=== PATIENT | female | born 1990 | race Caucasian/White ===

== ENCOUNTER 2021-02-17 18:56 | Emergency (ER) | payer OTHER, BC, SELFPAY ==
[2021-02-17 18:58] VITALS: BP 135/87; PULSE 90; RESP 14; TEMP 36.4; O2SAT 99
--- NOTE | 2021-02-17 19:32 | ED.WOUNDLAC ---
HPI - Wound/Laceration General Chief Complaint: Wound/Laceration Stated Complaint: DOG BITE Time Seen by Provider: 02/17/21 19:03 History of Present Illness HPI narrative: Patient is a 30-year-old female who presents ER with dog bite wounds to her hands. Occurred just prior to arrival. Was attacked by neighbors dog who reported fully vaccinated. Patient's last tetanus shot was 1 year ago. She was walking her dog and now the dog broke off the leash. Patient has some superficial bite/puncture wounds to the hands bilaterally. Right hand mainly involves digits 2 and 4 as well as couple jin near the wrist. Left hand involves a puncture. Reports throbbing numbness to the left third digit distal to the injury. Third digit has a small bite at the PIP of the third digit. Related Data Home Medications Medication Instructions Recorded Confirmed bupropion HCl mg PO 02/17/21 norethindrone (contraceptive) mg 02/17/21 sertraline mg 02/17/21 Allergies Allergy/AdvReac Type Severity Reaction Status Date / Time No Known Allergies Allergy Verified 02/17/21 19:14 Review of Systems Constitutional: Constitutional: Denies chills and Denies fever(s) Musculoskeletal: Musculoskeletal: Denies arthralgias, Denies joint swelling and Denies muscle cramps Integumentary/Breasts: Skin/Breast: Denies rash, Denies skin pain and Reports wounds Neurologic: Denies focal weakness, Denies numbness (Tingling that is not reproducible) and Denies weakness PMFSH Past Medical History Medical History (Updated 02/17/21 @ 19:40 by Fei Zuniga MD) Healthy female adult Surgical History Surgical History (Updated 02/17/21 @ 19:35 by Fei Zuniga MD) No history of previous surgery Exam Narrative: GENERAL: Well-appearing, well-nourished, and in no acute distress. HEAD: Normocephalic, atraumatic. HEART: Regular rate and rhythm. Normal peripheral pulses. EXTREMITIES: Focused exam of bilateral hands reveals normal range of motion and strength of the digits. The right hand has a puncture wound digit #4 and a superficial laceration at the PIP of digit #2. 2 superficial punctures near the wrist. Digit #3 on the left hand reveals a puncture wound near the PIP. Sensation intact in hands bilaterally. Wounds cleansed and appear to be very superficial and not deep. SKIN: Warm, dry, no rash. NEURO: No focal deficits. Alert and oriented x3. PSYCH: Normal mood and affect. Course Course Emergency Course: Discussed tx plan. Patient verbalized understanding. Wound superficial, no XR. D/c. Vital Signs Vital signs: Vital Signs Temperature 97.6 F 02/17/21 18:58 Pulse Rate 90 02/17/21 18:58 Respiratory Rate 14 02/17/21 18:58 Blood Pressure 135/87 02/17/21 18:58 Pulse Oximetry 99 02/17/21 18:58 Temperature 97.6 F 02/17/21 18:58 Pulse Rate 90 02/17/21 18:58 Respiratory Rate 14 02/17/21 18:58 Blood Pressure 135/87 02/17/21 18:58 Pulse Oximetry 99 02/17/21 18:58 Discharge Plan Discharge Clinical Impression: Dog bite of hand Patient Disposition: Home, Self-Care Condition: Stable Instructions: Antibiotic Form, Animal Bite (ED) Additional Instructions: Return to the ER if your fingers are red/hot/swollen, you have pus draining from wounds, you have additional concerns. Prescriptions: New amoxicillin-pot clavulanate [Augmentin] 875-125 mg tablet 1 tablet PO Q12H Qty: 10 RF: 0 No Action sertraline 100 mg tablet RF: 0 norethindrone (contraceptive) 0.35 mg tablet RF: 0 bupropion HCl 300 mg tablet extended release 24 hr PO RF: 0 Follow-up/Referrals: PHYSICIAN,STOCK SORTER [Non-Staff] - Zev Mcgraw MD [Physician] - 1 Week
[2021-02-17 20:07] VITALS: BP 138/85; PULSE 80; RESP 16; O2SAT 100
== END 2021-02-17 19:58 | disposition home or self-care (01) ==
PROVIDERS: Emergency Provider Emergency Medicine
DX: S61.250A Open bite of right index finger without damage to nail, initial encounter (principal); S61.254A Open bite of right ring finger without damage to nail, initial encounter; S61.551A Open bite of right wrist, initial encounter; S61.253A Open bite of left middle finger without damage to nail, initial encounter; W54.0XXA Bitten by dog, initial encounter
CPT/HCPCS: 99283

== ENCOUNTER 2021-10-03 10:38 | Emergency (ER) | payer BC, SELFPAY ==
[2021-10-03 10:51] VITALS: BP 111/74; PULSE 73; RESP 18; TEMP 37; O2SAT 100
--- NOTE | 2021-10-03 10:57 | ED.URI ---
HPI - URI/Sore Throat General Chief Complaint: Upper Respiratory Infection Stated Complaint: runny nose,sorethroat,hoarse Time Seen by Provider: 10/03/21 10:57 Source: patient Mode of arrival: ambulatory Limitations: no limitations History of Present Illness HPI Narrative: 31-year-old female presents with complaint of cough, nasal congestion, sore throat, headaches, fatigue, postnasal drainage for 5 to 6 days. Reports sore throat worse and has hoarse voice. Denies chest pain or shortness of breath. Taking [id number] DayQuil NyQuil cold and flu with no relief. Has taken 2 home Covid test that were both negative. All systems reviewed and negative except as noted above. Related Data Home Medications Medication Instructions Recorded Confirmed bupropion HCl 300 mg PO DAILY 02/17/21 10/03/21 sertraline 100 mg PO DAILY 02/17/21 10/03/21 norethindrone-e.estradiol-iron 1 tablet PO DAILY 10/03/21 10/03/21 [Aurovela 24 Fe] Allergies Allergy/AdvReac Type Severity Reaction Status Date / Time No Known Allergies Allergy Verified 10/03/21 10:56 Review of Systems Review of Systems: CONSTITUTIONAL: Denies fever, chills, or sweats. EYES: Denies visual changes, redness, or discharge. ENT: Reports rhinorrhea, congestion, sore throat. Denies otalgia. CARDIOVASCULAR: Denies chest pain, palpitations, or edema. RESPIRATORY: Reports cough. Denies dyspnea. GASTROINTESTINAL: Denies abdominal pain, nausea, vomiting, or diarrhea. GENITOURINARY: Denies dysuria or hematuria. SKIN: Denies rash or itching. MUSCULOSKELETAL: Denies back pain, joint pain, or myalgia. NEUROLOGIC: Denies headache, numbness, or weakness. PSYCHIATRIC: Denies anxiety or depression. All other systems reviewed are negative, except as documented in HPI. [facility] Past Medical History Medical History (Updated 10/03/21 @ 11:04 by Anna Mobley NP) Healthy female adult Surgical History Surgical History (Updated 02/17/21 @ 19:35 by Fei Zuniga MD) No history of previous surgery Comments At time of signature, agree with nursing past medical, surgical, social and family history. There is no relevant family history pertinent to the presenting complaint. Exam Narrative: GENERAL: This is a well-nourished, well-developed patient, in no apparent distress. HEAD: normocephalic, atraumatic. EYES: PERRL. Sclera clear/white. Vision is grossly intact. EARS: External ears normal, auditory canals clear and without drainage, TMs normal without perforation. Hearing grossly intact. NOSE: External nose normal with clear nasal drainage, erythema to nares. THROAT: Mucous membranes moist, erythema to posterior pharynx with clear postnasal drainage. No exudates or no tonsillar enlargement. NECK: Neck supple, non-tender without lymphadenopathy, masses or thyromegaly. CARDIOVASCULAR: Regular rate and rhythm without murmurs, gallops, or rubs. RESPIRATORY: Clear to auscultation. Breath sounds equal bilaterally. No wheezes, rales, or rhonchi. SKIN: warm, Dry, intact with no suspicious lesions or rash, good texture and turgor. NEURO: awake, alert, and oriented to person, place and time. There were no obvious focal neurologic abnormalities. EXTREMITIES: No joint tenderness, effusion, or edema noted. No calf tenderness. Negative Homans sign bilaterally. Course Course Level of Care: Express Care Visit Vital Signs Vital signs: Vital Signs Temperature 37.0 C 10/03/21 10:51 Pulse Rate 73 10/03/21 10:51 Respiratory Rate 18 10/03/21 10:51 Blood Pressure 111/74 10/03/21 10:51 Pulse Oximetry 100 10/03/21 10:51 Temperature 37.0 C 10/03/21 10:51 Pulse Rate 73 10/03/21 10:51 Respiratory Rate 18 10/03/21 10:51 Blood Pressure 111/74 10/03/21 10:51 Pulse Oximetry 100 10/03/21 10:51 Reviewed MDM - URI/Sore Throat MDM Narrative Medical decision making narrative: Patient is aware of diagnosis, understands and agrees to treatment plan. An
== END 2021-10-03 11:08 | disposition home or self-care (01) ==
PROVIDERS: Emergency Provider Nurse Practitioner Family
DX: J06.9 Acute upper respiratory infection, unspecified (principal); F41.9 Anxiety disorder, unspecified; F32.A Depression, unspecified
CPT/HCPCS: 99213; G0463

== ENCOUNTER 2022-12-08 10:18 | Emergency (ER) | payer OTHER, SELFPAY ==
[2022-12-08 10:44] VITALS: BP 122/75; PULSE 64; RESP 18; TEMP 36.5; O2SAT 100
--- NOTE | 2022-12-08 11:04 | ED.EYEPROB ---
HPI - Eye Problem General Chief complaint: Eye Problems Stated complaint: bilateral eye irritation Time Seen by Provider: 12/08/22 11:04 Source: patient Mode of arrival: ambulatory Limitations: no limitations History of Present Illness HPI Narrative: 32-year-old female presents with complaint of redness, drainage irritation to both eyes for the past 2-3 days. Started to 1 eye and then spread to the other eye. Patient wears contacts but after symptoms started to 1st eyes she began wearing her glasses in through the contacts away. She denies vision changes. No pain. States drainage is yellowish green. All systems reviewed and negative except as noted above. Related Data Home Medications Medication Instructions Recorded Confirmed bupropion HCl 300 mg 24 hr tablet, mg PO 12/08/22 extended release levothyroxine 50 mcg tablet mcg 12/08/22 12/08/22 norethindrone 1 mg-ethinyl tablet 12/08/22 estradiol 20 mcg (24)-iron 75 mg (4) tablet () sertraline 100 mg tablet mg 12/08/22 Allergies Allergy/AdvReac Type Severity Reaction Status Date / Time No Known Allergies Allergy Verified 10/03/21 10:56 Review of Systems Review of Systems: CONSTITUTIONAL: Denies fever, chills, or sweats. EYES: Denies visual changes . Reports redness, irritation and discharge. ENT: Denies rhinorrhea, congestion, sore throat, or otalgia. CARDIOVASCULAR: Denies chest pain, palpitations, or edema. RESPIRATORY: Denies cough or dyspnea. GASTROINTESTINAL: Denies abdominal pain, nausea, vomiting, or diarrhea. GENITOURINARY: Denies dysuria or hematuria. SKIN: Denies rash or itching. MUSCULOSKELETAL: Denies back pain, joint pain, or myalgia. NEUROLOGIC: Denies headache, numbness, or weakness. PSYCHIATRIC: Denies anxiety or depression. All other systems reviewed are negative, except as documented in HPI. [facility] Past Medical History Medical History (Updated 12/08/22 @ 11:10 by Anna Mobley NP) Healthy female adult Surgical History Surgical History (Updated 02/17/21 @ 19:35 by Fei Zuniga MD) No history of previous surgery Comments At time of signature, agree with nursing past medical, surgical, social and family history. There is no relevant family history pertinent to the presenting complaint. Exam Narrative: GENERAL: This is a well-nourished, well-developed patient, in no apparent distress. HEAD: normocephalic, atraumatic. EYES: PERRL. Sclera and conjunctiva erythematous. Yellowish ropey drainage noted. Vision is grossly intact. EARS: External ears normal NOSE: External nose normal NECK: Neck supple, non-tender without lymphadenopathy, masses or thyromegaly. CARDIOVASCULAR: Regular rate and rhythm without murmurs, gallops, or rubs. RESPIRATORY: Clear to auscultation. Breath sounds equal bilaterally. No wheezes, rales, or rhonchi. SKIN: warm, Dry, intact with no suspicious lesions or rash, good texture and turgor. NEURO: awake, alert, and oriented to person, place and time. There were no obvious focal neurologic abnormalities. EXTREMITIES: No joint tenderness, effusion, or edema noted. Course Course Level of Care: Express Care Visit Vital Signs Vital signs: Vital Signs Temperature 36.5 C 12/08/22 10:44 Pulse Rate 64 12/08/22 10:44 Respiratory Rate 18 12/08/22 10:44 Blood Pressure 122/75 12/08/22 10:44 Pulse Oximetry 100 12/08/22 10:44 Oxygen Delivery Room Air 12/08/22 10:44 Temperature 36.5 C 12/08/22 10:44 Pulse Rate 64 12/08/22 10:44 Respiratory Rate 18 12/08/22 10:44 Blood Pressure 122/75 12/08/22 10:44 Pulse Oximetry 100 12/08/22 10:44 Oxygen Delivery Room Air 12/08/22 10:44 Reviewed MDM - Eye Problem MDM Narrative Medical decision making narrative: Patient is aware of diagnosis, understands and agrees to treatment plan. Anticipatory guidance given. Patient agrees to follow-up as directed and is aware of reas
== END 2022-12-08 11:17 | disposition home or self-care (01) ==
PROVIDERS: Emergency Provider Nurse Practitioner Family; PCP Internal Medicine
DX: H10.33 Unspecified acute conjunctivitis, bilateral (principal)
CPT/HCPCS: 99213; G0463

== ENCOUNTER 2023-10-06 09:05 | Emergency (ER) | payer OTHER, SELFPAY ==
[2023-10-06 09:43] VITALS: BP 118/70; PULSE 107; RESP 14; TEMP 36.8; O2SAT 100
--- NOTE | 2023-10-06 10:05 | ED.URI ---
HPI - URI/Sore Throat General Chief Complaint: Upper Respiratory Infection Stated Complaint: nausea,cough,congestion Time Seen by Provider: 10/06/23 10:05 Source: patient and RN notes reviewed Mode of arrival: ambulatory Limitations: no limitations History of Present Illness HPI Narrative: 33-year-old female who is 4 weeks presents with concern for 2 day history of nausea, diarrhea, cough, sinus congestion that started on Friday. She reports she has not taken any medication because she is not sure what to take. She reports chills, sweats, body aches. Denies fever MD elicited complaint: cough and nasal congestion Related Data Home Medications Medication Instructions Recorded Confirmed bupropion HCl 300 mg 24 hr tablet, mg PO 12/08/22 extended release sertraline 100 mg tablet mg 12/08/22 Compound [id number] 10/06/23 Allergies Allergy/AdvReac Type Severity Reaction Status Date / Time No Known Allergies Allergy Verified 10/06/23 09:55 Review of Systems Review of Systems: CONSTITUTIONAL: Report malaise, chills, sweats. Denies fever. EYES: Denies visual changes, redness, or discharge. ENT: Reports rhinorrhea, congestion. Denies sinus pain, otalgia and sore throat. CARDIOVASCULAR: Denies chest pain, palpitations, or edema. RESPIRATORY: Reports cough. Denies dyspnea. GASTROINTESTINAL: Denies abdominal pain. Reports nausea, vomiting, diarrhea SKIN: Denies rash or itching. MUSCULOSKELETAL: Reports myalgia. NEUROLOGIC: Denies headache. All systems reviewed & are unremarkable except as noted in HPI and below PMFSH Past Medical History Medical History (Updated 10/06/23 @ 10:31 by Colleen Childers NP) Healthy female adult Surgical History Surgical History (Updated 02/17/21 @ 19:35 by Fei Zuniga MD) No history of previous surgery Comments At time of signature, agree with nursing past medical, surgical, social and family history. There is no relevant family history pertinent to the presenting complaint Exam Narrative: GENERAL: Nontoxic-appearing, well-nourished, and in no acute distress. HEAD: Normocephalic EYES: PERRLA, conjunctivae clear ENT: Nares clear, turbinates edematous and erythematous, clear discharge. Mucous membranes moist. TM pearly dodge with sharp light reflex bilaterally; no tragal tenderness. Oropharynx not erythematous without lesions. Tonsils not enlarged and without exudate, no drooling, no hoarseness, no trismus, uvula midline. NECK: Supple. No lymphadenopathy CHEST: Clear to auscultation, breath sounds equal. No wheezing, rhonchi, rales, or stridor. No respiratory distress, speaks in full sentences. HEART: Regular rate and rhythm. No murmur heard. SKIN: Warm, dry, no rash. NEURO: Alert and oriented x3. PSYCH: Normal mood and affect Course Course Emergency Course: Patient is aware of diagnosis, understands and agrees to treatment plan. Anticipatory guidance given. Patient agrees to follow-up as directed and is aware of reasons to seek care at the emergency department. Portions of this record may have been created with voice recognition software Level of Care: Express Care Visit Vital Signs Vital signs: Vital Signs Temperature 98.3 F 10/06/23 09:43 Pulse Rate 107 H 10/06/23 09:43 Respiratory Rate 14 10/06/23 09:43 Blood Pressure 118/70 10/06/23 09:43 Pulse Oximetry 100 10/06/23 09:43 Oxygen Delivery Room Air 10/06/23 09:43 Temperature 98.3 F 10/06/23 09:43 Pulse Rate 107 H 10/06/23 09:43 Respiratory Rate 14 10/06/23 09:43 Blood Pressure 118/70 10/06/23 09:43 Pulse Oximetry 100 10/06/23 09:43 Oxygen Delivery Room Air 10/06/23 09:43 Reviewed. MDM - URI/Sore Throat MDM Narrative Medical decision making narrative: Differential diagnosis considered: Goyal virus, strep pharyngitis, allergic rhinitis, upper respiratory tract infection, sinusitis, rhinosinusitis, nasopharyngitis. viral pharyngitis, otitis me
== END 2023-10-06 10:36 | disposition home or self-care (01) ==
PROVIDERS: Emergency Provider Nurse Practitioner; PCP Internal Medicine
DX: J10.1 Influenza due to other identified influenza virus with other respiratory manifestations (principal)
CPT/HCPCS: 87804; 99213; G0463

== ENCOUNTER 2025-05-15 09:34 | Emergency (ER) | payer OTHER, SELFPAY ==
--- OUTSIDE RECORDS SUMMARY | 2025-05-15 09:40 | XMS_ITS | Data Portability ---
Author Organization [facility] [place] James Address [address] [place] [address] Care Team Providers Care Technical Training Manager Name Role Phone THERESE BASHIR Director Safety Assessment Encounter Date Assessment Date Assessment LastModified by Organization Details LastModified Time 04/30/2024 04/30/2024 36 weeks doing well baby with umbilicalvarix being followed by [facility] with NSTs and growth scans still hoping for local 39 week delivery. Not available 04/30/2024 11:12:48 05/07/2024 05/07/2024 37 weeks, second baby, doing well Not available 05/07/2024 14:35:03 05/14/2024 05/14/2024 second baby, 39 week induction scheduled next week Not available 05/14/2024 14:37:52 05/31/2024 05/31/2024 PPD check after second vaginal delivery by Dr Matias rehabilitation consultant will start minipill as plans to pump for awhile Not available 05/31/2024 14:29:23 06/28/2024 06/28/2024 normal PP exam after second vaginal delivery minipill for control while Not available 06/28/2024 14:14:00 Plan of Treatment Reminders Order Date Submit Date Provider Last Modified By Organization Details Last Modified Time Details Appointments ANNUAL 2025 10:30A M Therese Bashir MD Not available Not available Not available Lab cytology report, thin prep, smear or scraping, cervical or vaginal 2023 024 [facility], [address], [address], [place], [address], 07/02/2024 16:22:48 urinalysi s, dipstick 2023 024 In-Office Order, Internal Use Only DO Not Attach Compendium DO Not Attach Compendium, Do Not Delete/merge, [id number] 05/14/2024 14:37:52 urinalysi s, dipstick 2023 024 In-Office Order, Internal Use Only DO Not Attach Compendium DO Not Attach Compendium, Do Not Delete/merge, 05/07/2024 14:35:03 urinalysi s, dipstick 2023 024 In-Office Order, Internal Use Only DO Not Attach Compendium DO Not Attach Compendium, Do Not Delete/merge, 04/30/2024 11:12:49 Referral None recorded. Procedures None recorded. Surgeries None recorded. Imaging None recorded. Medication Orders Andria 0.35 mg tablet 2023 [facility][id number], [address], [id number], 06/28/2024 14:14:22 Andria 0.35 mg tablet 2023 [id number], [address], [id number], 05/31/2024 14:29:50 Patient TargetsNo targets recorded. Patient Instructions Encounter Date Encounter Id Patient Instructions Last Modified By Organization Details Last Modified Time 05/31/2024 [id number] depression after childbirth: care instructions er Not available 05/31/2024 14:29:45 stress in parent s of infants: care instructions er Not available 05/31/2024 14:29:45 06/28/2024 [id number] edinburgh depression scale* urn Not available 06/28/2024 14:09:11 Reason for Referral None Reported. Results Created Date Observation Date Name Description Value Unit Range Abnormal Flag Note LastModifiedBy Organization Detail LastModifiedTime 03/30/2003/30/2024 urina lysis , dipst ick Protein Trace Not Available In-Office Order Internal Use Only DO Not Attach Compendium DO Not Attach Compendium, Do Not Delete/merge, [id number] 03/22/2024 16:34:01 03/30/20 24 03/30/2024 urina lysis , dipst ick Glucose Negati ve Not Available In-Office Order Internal Use Only DO Not Attach Compendium DO Not Attach Compendium, Do Not Delete/merge, [id number] 03/22/2024 16:34:01 04/16/20 24 04/16/2024 urina lysis , dipst ick Protein Trace Not Available In-Office Order Internal Use Only DO Not Attach Compendium DO Not Attach Compendium, Do Not Delete/merge, [id number] 04/06/2024 12:10:09 04/16/20 24 04/16/2024 urina lysis , dipst ick Glucose Negati ve Not Available In-Office Order Internal Use Only DO Not Attach Compendium DO Not Attach Compendium, Do Not Delete/merge, [id number] 04/06/2024 12:10:09 04/30/20 24 04/30/2024 urina lysis , dipst ick Protein Negati ve Not Available In-Office Order Internal Use Only DO Not Attach Compendium DO Not Attach Compendium, Do Not Delete/merge, [id number] 04/26/2024 16:20:22 04/30/20 24 04/30/2024 urina lysis , dipst ick Glucose Negati ve Not Available In-Office Order Internal Use Only DO Not Attach Compendium DO Not Attach Compendium, Do Not Delete/merge, [id number] 04/26/2024 16:20:22 05/07/20 24 05/07/2024 urina lysis , dipst ick Protein Negati ve Not Available In-Office Order Internal Use Only DO Not Attach Compendium DO Not Attach Compendium, Do Not Delete/merge, [id number] 05/05/2024 15:25:45 05/07/20 24 05/07/2024 urina lysis , dipst ick Glucose Negati ve Not Available In-Office Order Internal Use Only DO Not Attach Compendium DO Not Attach Compendium, Do Not Delete/merge, [id number] 05/05/2024 15:25:45 05/14/20 24 05/14/2024 urina lysis , dipst ick Protein Negati ve Not Available In-Office Order Internal Use Only DO Not Attach Compendium DO Not Attach Compendium, Do Not Delete/merge, [id number] 05/10/2024 12:54:00 05/14/20 24 05/14/2024 urina lysis , dipst ick Glucose Negati ve Not Available In-Office Order Internal Use Only DO Not Attach Compendium DO Not Attach Compendium, Do Not Delete/merge, [id number] 05/10/2024 12:54:00 06/28/20 24 07/02/2024 IGP, RFX APTIM A HPV ASCU diagnosis: COMMEN T NEGAT EDGARDO FOR INTRA EPITH ELIAL LESIO N OR SHERRON SELBY . POST- PARTU M TOVAR ES ARE PRESE NT. THIS SPECI MEN WAS RESCR EENED PART OF OUR QUALI TY CONTR OL PROGR AM. Not Available [facility] ([facility]) [address], [place], [address], 07/02/2024 16:22:48 06/28/20 24 07/02/2024 IGP, RFX APTIM A HPV ASCU specimen adequacy: COMMEN T Satis facto ry for evalu ation . Endoc ervic al and/o r squam ous metap lasti c cells (endo cervi lesly compo nent) are prese nt. Not Available [facility] ([facility]) [address], [place], [address], 07/02/2024 16:22:48 06/28/20 24 07/02/2024 IGP, RFX APTIM A HPV ASCU clinician provided ICD10: COMMEN T Z39.2 Not Available [facility] ([facility]) [address], [place], [address], 07/02/2024 16:22:48 06/28/20 24 07/02/2024 IGP, RFX APTIM A HPV ASCU performed by: MARTITA Pearl er, Cytot echno logis t (ASCP ) Not Available [facility] ([facility]) [address] [place], [address], 07/02/2024 16:22:48 06/28/20 24 07/02/2024 IGP, RFX APTIM A HPV ASCU QC reviewed by: MARTITA Williamson n, Super visor y Cytot echno logis t (ASCP ) Not Available [facility] ([facility]) [address] [place], [address], 07/02/2024 16:22:48 06/28/20 24 07/02/2024 IGP, RFX APTIM A HPV ASCU . . Not Available [facility] ([facility]) [address] [place], [address], 07/02/2024 16:22:48 06/28/20 24 07/02/2024 IGP, RFX APTIM A HPV ASCU note: MARTITA Johnson The Pap smear is a scree katy test roxann loya to aid in the detec tion of guero ligna nt and malig nant condi tions of the uteri ne cervi x. It is not a diagn ostic proce dure and shoul d not be used as the sole means of detec ting cervi lesly cance r. Both false -posi tive and false -nega tive repor ts do occur . Not Available [facility] ([facility]) [address] [place], [address], 07/02/2024 16:22:48 06/28/20 24 07/02/2024 IGP, RFX APTIM A HPV ASCU test methodology: MARTITA Johnson This liqui d based ThinP rep(R ) pap test was scree vincenzo with the use of an image guide anahi clark Not Available [facility] ([facility]) [address], [place], [address], 07/02/2024 16:22:48 06/28/20 24 07/02/2024 IGP, RFX APTIM A HPV ASCU . COMMEN T The HPV DNA refle x crite ronald were not met with this speci men resul t there fore, no HPV testi ng was perfo rmed. Not Available [facility] ([facility]) [address], [place], [address], 07/02/2024 16:22:48 06/28/20 24 06/28/2024 edinb urgh postn atal depre ssion scale * Score 6 Not Available In-Office Order Internal Use Only DO Not Attach Compendium DO Not Attach Compendium, Do Not Delete/merge, [id number] 06/28/2024 13:55:55 03/30/20 24 03/26/2024 US, obste tric, mater nal evalu ation + anato my No observ ation record ed. [facility] [address] [place] [address], [address], 03/30/2024 10:01:36 04/09/20 24 04/09/2024 US, obste tric No observ ation record ed. [facility] [address], [address], 04/12/2024 11:50:02 04/09/20 24 04/09/2024 US, obste tric, mater nal evalu ation + anato my No observ ation record ed. [facility] [address], [address], 04/12/2024 11:50:02 04/16/20 24 04/16/2024 US, obste tric, mater nal evalu ation + anato my No observ ation record ed. [facility] Not Available 2023 12:58:14 10/18/20 24 04/16/2024 US, obste tric, mater nal evalu ation + anato my No observ ation record ed. [facility] ([facility]) Scheduling [address] [place], [address], 04/19/2024 12:58:24 04/16/20 24 04/16/2024 US, obste tric, mater nal evalu ation + anato my No observ ation record ed. [facility] [address] [place], [address], 04/19/2024 11:37:09 04/23/2004/23/2024 US, obste tric, mater nal evalu ation + anato my No observ ation record ed. [facility] ([facility]) Scheduling [address] [place], [address], 04/23/2024 15:50:02 04/23/20 24 04/23/2024 US, obste tric, mater nal evalu ation + anato my No observ ation record ed. [facility] ([facility]) Scheduling [address] [place], [address], 04/23/2024 15:50:23 04/23/20 24 04/23/2024 US, obste tric, mater nal evalu ation + anato my No observ ation record ed. [facility] [address] [place], [address], 04/23/2024 15:31:19 04/30/20 24 04/30/2024 US, obste tric, follo w-up No observ ation record ed. [facility] ([facility]) Scheduling [address] [place], [address], 05/03/2024 14:29:08 05/03/20 24 04/30/2024 US, obste tric, mater nal evalu ation + anato my No observ ation record ed. [facility] [address], [place], [address], 05/03/2024 14:28:45 05/07/20 24 05/07/2024 US, obste tric, follo w-up No observ ation record ed. [facility] ([facility]) Scheduling [address] [place], [address], 05/07/2024 15:06:47 05/10/20 24 05/07/2024 US, obste tric, follo w-up No observ ation record ed. [facility] ([facility]) Scheduling [address] [place], [address], 05/10/2024 14:24:25 05/14/20 24 05/14/2024 US, obste tric, follo w-up No observ ation record ed. [facility] ([facility]) Scheduling [address] [place], [address], 05/14/2024 15:35:17 05/14/20 24 05/14/2024 US, obste tric, mater nal evalu ation + anato my No observ ation record ed. [facility] [address], [place], [address], 05/14/2024 15:35:18 Result Notes None recorded. Problems Name Problem SNOMED Code Status Onset Date Resolution Date Notes Provider Name and Address Organization Details Recorded Time Genital herpes simplex 42360697 Active Freda Hermosillo MD Attn: Accounting ,[address] [place], [address] , [facility] 2 11:29:58 Genital herpes simplex 91657227 Completed Freda Hermosillo MD Attn: Accounting ,[address] [place], [address] , [facility] 2 11:29:58 Chronic endometri tis 61160789 Completed 201901/31/2020 Gale Truj[place] null, [place] [facility] 0 15:32:07 Anxiety 26562083 Active 2019 Gale [place] 0 15:32:14 Chronic depressio n 341294540 Active 2019 Gale Tru[place] 0 15:32:21 History of endometri osis [id number] 856090 Active 2019 Gale [place] 0 15:32:34 96285569 Completed 201908/31/2020 MERLINE Lambert null, [place] - [facility] 4 14:20:56 [id number] Completed 202305/31/2024 MERLINE Lambert [place] [facility] 4 14:20:56 Problem Notes None recorded. Procedures Surgical History Date Name Laterality Status Provider Name and Address Organization Details Recorded Time 06/28/20 24 Date of Last Pap Smear completed Gabriella Rutherford RN [facility] 07/02/2024 16:31:17 laparoscopic laser destruction of endometriosis completed Gale Espinoza Ronnie [place] - [facility] 01/31/2020 15:38:06 Imaging Results None recorded. Procedure Notes None recorded. Medical Equipment None Reported. Allergies No known drug allergies Medications Name Sig Start Date Stop Date Status Note LastModified by Organization Details LastModified Time ofloxacin 0.3 % eye drops 12/08 completed Not Available Not Available Not Available sertraline 100 mg tablet TAKE 2 TABLETS BY MOUTH DAILY active Not Available Not Available No t Available ondansetron 8 mg disintegrat ing tablet Place 1 tablet every 8 hours by transling ual route as needed for 2 days. 09/28 completed Not Available Not Available Not Available lorazepam 0.5 mg tablet 08/28 completed Not Available Not Available Not Available erythromyci n 5 mg/gram (0.5 %) eye ointment APPLY INTO LEFT EYE FOUR TIMES DAILY FOR 5 DAYS 08/28 completed Not Available Not Available Not Available oseltamivir 75 mg capsule TAKE 1 CAPSULE BY MOUTH TWICE DAILY FOR 5 DAYS active Not Available Not Available No t Available sertraline 25 mg tablet 08/28 completed Not Available Not Available Not Available norethindro ne (contracept edgardo) 0.35 mg tablet TAKE 1 TABLET BY MOUTH EVERY DAY active Not Available Not Available No t Available ondansetron 4 mg disintegrat ing tablet active Not Available Not Available N ot Available amoxicillin 875 mg-potassiu m clavulanate 125 mg tablet TAKE 1 TABLET BY MOUTH EVERY 12 HOURS 08/28 completed Not Available Not Available Not Available bupropion HCl XL 300 mg 24 hr tablet, extended release TAKE 1 TABLET BY MOUTH DAILY IN THE MORNING active Not Available Not Available No t Available duloxetine 30 mg capsule,del ayed release 12/08 completed Not Available Not Available Not Available duloxetine 60 mg capsule,del ayed release 12/08 completed Not Available Not Available Not Available 08/28 completed Not Available Not Available Not Available Estarylla 0.25 mg-0.035 mg tablet Take 1 tablet every day by oral route for 28 days. 2024 active Not Available Not Available Not Avai lable Junel Fe 24 1 mg-20 mcg (24)/75 mg (4) tablet TAKE 1 TABLET BY MOUTH EVERY DAY 12/08 completed Not Available Not Available Not Available Vitals Date Recorded Body height Body mass index (BMI) Body weight Systolic And Diastolic Provider Name and Address Organization Details Last Updated DateTime 04/30/2024 172.72 cm 28.9 kg/m2 00219.981 384 g 118/72 mm[Hg] Bere Chong [facility] 04/30/2024 11:03:46 Date Recorded Body height Body mass index (BMI) Body weight Systolic And Diastolic Provider Name and Address Organization Details Last Updated DateTime 05/07/2024 172.72 cm 28.9 kg/m2 52730.837 69 g 112/77 mm[Hg] Bere Chong [facility] 05/07/2024 14:21:51 Date Recorded Body height Body weight Systolic And Diastolic Provider Name and Address Organization Details Last Updated DateTime 05/14/2024 172.72 cm 03778.5737 54 g 127/80 mm[Hg] Bere Chong [facility] 05/14/2024 14:17:45 Date Recorded Body height Body mass index (BMI) Body weight Systolic And Diastolic Provider Name and Address Organization Details Last Updated DateTime 05/31/2024 172.72 cm 24.8 kg/m2 69919.56 g 116/74 mm[Hg] Bere Chong [facility] 05/31/2024 14:21:13 Date Recorded Body height Body mass index (BMI) Body weight Systolic And Diastolic Provider Name and Address Organization Details Last Updated DateTime 06/28/2024 172.72 cm 24 kg/m2 64887.74 g 121/84 mm[Hg] Bere Chong [facility] 06/28/2024 14:04:55 Social History Question Answer Notes LastModified by Organizat ion Details LastModified Time Tobacco Smoking Status Never Smoker Gale Trujillo [facility] 01/31/2020 15:35:50 What Is Your Level Of Caffeine Consumption? None Information not available 01/31/2020 How Much Tobacco Do You Chew? None [email or web address] Information not available 01/31/2020 In The 14 Days Before Symptom Onset, Have You Had Close Contact With A Laboratory-confirm ed COVID-19 While That Case Was Ill? No Information n ot available 08/28/2021 In The 14 Days Before Symptom Onset, Have You Had Close Contact With A Person Who Is Under Investigation For COVID-19 While That Person Was Ill? No Information not available 08/28/2021 Have You Been To An Area Known To Be High Risk For COVID-19? No Information not available 08/28/2021 What Type Of Diet Are You Following? REGULAR [email or web address] Information n ot available 01/31/2020 Which Illicit Or Recreational Drugs Have You Used? Denies [email or web address] Information not available 01/31/2020 Live Alone Or With Others? With Others [email or web address] Information not available 01/31/2020 What Was The Date Of Your Most Recent Tobacco Screening? 11/19/2023 Information not available 11/19/2023 How Many Children Do You Have? 0 [email or web address] Information not available 01/31/2020 Performs Monthly Self-breast Exam? Yes [email or web address] Information no t available 01/31/2020 Do You Use Protection During Sex? No Information not available 01/31/2020 What Is Your Relationship Status? [email or web address] Information not available 01/31/2020 Seat Belts Used Routinely Yes [email or web address] Information not available 01/31/2020 Are You Sexually Active? Yes [email or web address] Information not available 01/31/2020 How Much Tobacco Do You Smoke? No [email or web address] Information not available 01/31/2020 General Stress Level Medium [email or web address] Information not available 01/31/2020 Do You Use Sunscreen Routinely? Yes [email or web address] Information not available 01/31/2020 Has Tobacco Cessation Counseling Been Provided? No Information not available 08/28/2021 On What Date Was Tobacco Cessation Counseling Provided? 08/28/2021 Information not available 08/28/2021 Sex: Female Functional Status Question Answer Note LastModified by Organizat ion Details LastModified Time Do you or have you ever used any other forms of tobacco or nicotine? No Information not available 08/28/2021 What is your level of alcohol consumption? None [email or web address] Information not available 01/31/2020 Do you or have you ever used smokeless tobacco? Never used smokeless tobacco [email or web address] Information not available 01/31/2020 Are you currently employed? 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 Never used electronic cigarettes [email or web address] Information not available 01/31/2020 What is your exercise level? Moderate 30-45 minutes per day (5-6 days per week) [email or web address] Information not available 01/31/2020 Mental Status None recorded. Family History Relationship Description Onset Age of this Age Resolved Age Notes LastModified by Organization Details LastModified Time Father No current problems or disability [email or web address] Not available 01/30 15:35:31 Mother No current problems or disability [email or web address] Not available 01/30 15:35:31 Medical History Condition Response Coronary Artery Disease N Other N High Blood Pressure N Atrial Fibrillation N Thyroid Problems N Kidney or Bladder Problems N Blood Clots N COPD N Depression Y GI Problems N Skin Problems N Anemia N Heart Attack (MO) N Anxiety Disorder Y Diabetes N Muscle, Joint, or Bone Problems N Seizures/Epilepsy N Acid Reflux (GERD) Y Cancer N Stroke N Asthma N Allergies N High Cholesterol N Hepatitis N Liver Disease N Headaches N Heart Failure N Osteoporosis N Gynecological History Statement/Question Response Flow Moderate Date of LMP 08/22/2023 On BCP's at Conception? N STIs/STDs N Duration of Flow (days) 4 Age at Menarche 13 Current Control Method None Sexually Active? Y Menses Monthly Y Date of Last Pap Smear 06/28/2024 Sexual Problems? N LMP Approximate Desired Control Method BCPs Obstetrics History GPAL:G 2 P 2 0 0 2 Type Value Full Term 2 Living 2 Total 2 Immunizations Vaccine Type Date Status Note Provider Name and Address Organization Details Recorded Time Tdap 1 completed Gabriella Rutherford RN [facility], [facility] 07/04/2020 11:09:52 Tdap 4 cancelled patient objection Therese Bashir MD Attn: Accounting,[address] [place] [address], [address], [facility] 04/30/2024 11:12:49 Past Encounters Encounter ID Performer Location Encounter Start Date Encounter Closed Date Diagnosis/Indication Diagnosis SNOMED-CT Code Diagnosis ICD10 Code Diagnosis IMO Codes Diagnosis Note [id number] ERNESTINA Engel 14 OB [address] [facility] [place] [address] 02/02/2020 08:46:02 02/03/2020 13:14:18 Possible 012822808 Z32.00 test positive 373357649 Z32.01 [id number] ERNESTINA Engel 14 OB [address] [facility] [place] [address] 02/22/2020 09:46:35 02/23/2020 10:50:44 Routine care 521863054 Z34.02 [id number] FAREED Issa [address] [place] [address] 03/15/2020 09:52:29 03/16/2020 10:09:45 Suspected COVID-19 582920608 Z03.818 D/w pt the current pandemic of COVID-19 and call for social isolation in order to blunt the curve and minimize risk and spread. Encouraged patient and family to take restrictio ns seriously. They have verbalized understand ing of such. Viral syndrome 233285028 B34.9 Coronavirus infection 18 9950159 B34.2 [id number] ZOHREH Engel Lena 14 OB [address] [facility] [place] [address] 03/30/2020 10:06:01 03/31/2020 10:35:53 Routine care 272737863 Z34.02 [id number] ERNESTINA Engel 14 OB [address] [facility] [place] [address] 04/27/2020 09:25:54 04/28/2020 13:45:31 Routine care 695876473 Z34.02 [id number] JAIME EngelALEKSANDAR Marx 14 OB [address] [facility] [place] [address] 05/24/2020 09:32:32 05/24/2020 18:52:26 Routine care 107602020 Z34.02 see ob episode [id number] MD Lena Benites 14 OB [address] [facility] [place] [address] 06/20/2020 10:52:13 06/21/2020 11:35:36 Routine care 612453467 Z34.93 Normal 1887268 2 Z34.90 [id number] MD Lena Benites 14 OB [address] [facility] [place] [address] 07/04/2020 09:59:59 07/05/2020 14:08:30 Normal 66971434 Z34.90 Routine an tenatal care 677216606 Z34.93 [id number] MD Lena Benites 14 OB [address] [facility] [place] [address] 07/18/2020 13:41:49 07/18/2020 14:06:24 [id number] MD Lena Benites 14 OB [address] [facility] [place] [address] 07/21/2020 13:59:14 07/24/2020 11:12:36 Normal 85983685 Z34.90 [id number] MD Lena Benites 14 OB [address] [facility] [place] [address] 07/31/2020 13:46:28 08/01/2020 13:57:00 Normal 95132944 Z34.90 [id number] MD Lena Benites 14 OB [address] [facility] [place] [address] 08/07/2020 14:41:35 08/08/2020 11:58:22 Normal 79754137 Z34.90 [id number] MD Lena Benites 14 OB [address] [facility] [place] [address] 08/31/2020 10:52:46 09/01/2020 13:07:46 depression 57655972 F53.0 Contracept ion care management 482544462 Z30.9 [id number] MD Lena Benites 14 OB [address] [facility] [place] [address] 09/28/2020 10:33:39 10/02/2020 12:55:56 care 094091113 Z39.2 [id number] MD Lena Benites 14 OB [address] [facility] [place] [address] 02/01/2021 15:56:51 02/02/2021 08:20:29 Contraception care management 558970948 Z30.9 [id number] MD Lena Benites 14 OB [address] [facility] [place] [address] 08/28/2021 14:38:07 08/29/2021 06:15:24 Irregular periods 47387249 N92.6 [id number] MD Lena Benites [address] [place] [address] [place] [address] 11/19/2023 10:13:11 11/20/2023 09:18:25 Normal 20423367 Z34.90 [id number] MD Lena Benites [address] [place] [address] [place] [address] 12/09/2023 09:54:39 12/10/2023 10:17:22 Normal [id number] Z34.82 [id number] MD Lena Benites [address] [facility] [place] [address] 01/13/2024 16:00:26 01/19/2024 11:40:30 Normal [id number] Z34.82 [id number] MD Lena Benites 14 OB [address] [facility] [place] [address] 02/17/2024 10:49:40 02/23/2024 15:02:42 Normal [id number] Z34.82 [id number] MD Lena Benites 14 OB [address] [facility] [place] [address] 03/16/2024 09:24:36 03/19/2024 16:17:56 Normal [id number] Z34.82 [id number] MD Lena Benites 14 OB [address] [facility] [place] [address] 03/30/2024 14:03:30 04/05/2024 15:11:34 Normal [id number] Z34.82 [id number] MD Lena Benites 14 OB [address] [facility] [place] [address] 04/16/2024 10:53:28 04/19/2024 08:53:06 Normal [id number] Z34.82 Administra tion of diphtheria, pertussis, and tetanus vaccine [id number] Z23 [id number] MD Lena Benites 14 OB [address] [facility] [place] [address] 04/30/2024 10:44:50 05/04/2024 08:51:26 Normal [id number] Z34.82 Administra tion of diphtheria, pertussis, and tetanus vaccine [id number] Z23 [id number] MD Lena Benites 14 OB [address] [facility] [place] [address] 05/07/2024 14:12:18 05/10/2024 07:39:32 Normal [id number] Z34.82 [id number] MD Lena Benites 14 OB [address] [facility] [place] [address] 05/14/2024 13:50:49 05/22/2024 10:28:43 Normal [id number] Z34.82 [id number] MD Lena Benites 14 OB [address] [facility] [address] [place] [address] 05/31/2024 14:11:03 06/14/2024 07:43:15 depression [id number] F53.0 Contracept ion care management [id number] Z30.9 [id number] MD Lena Benites 14 OB [address] [facility] [address] [place] [address] 06/28/2024 13:30:41 07/01/2024 16:23:40 care [id number] Z39.2 Contracept ion care management [id number] Z30.9 Health Concerns Section Related Observation LastModified by Organization Detai ls LastModified Time None Recorded Concern Status LastModified by Organization Details LastModified Time None Recorded Advance Directives Directive None Recorded Payers Insurance Date Sequence Insurance Name Policy Number Policy Nagy Covered Member ID Nagy Member ID Guarantor Name 11/25/2023 2 [place] [facility] PRIOR TO 01/28/2025 (MEDICAID REPLACEMENT - HMO) Stacie Bustillo [id number] Stacie Bustillo 11/25/2023 1 [place] [id number] Stacie Bustillo [id number] Stacie Bustillo 07/01/2024 1 [facility] [id number] Stacie Bustillo [id number] Stacie Bustillo Notes Date Note Type Note Provider Name and Address Organization Details Recorded Time 06/28/2024 text/html VisitReported by Patient 6 weeks out from vaginal delivery of second little girl Therese Bashir MD Attn: Accounting,[address] [facility], [place], [address], [facility] 06/28/2024 14:14:33 OBGyn Episode Ob Episode Information Episode Created Date Number of Fetuses Patient Bloodtype Patient rh Status Prepregnancy Weight lbs Domestic Partner Domestic Partner Phone Father Name Tallow Refiner Status 11/19/19 24 1 A Positive CLOSED Fetus Data First Name Last Name Admitted to NICU Weight (g) Sex Living Outcome Pediatric Complications Fetus ID Race Codes Race Delivery Type Rita false [phone] 05 F true Full Term [id number] White Vaginal Jonathan Calculation Initial Jonathan Date Initial Exam Date Initial Exam Provider Initial Ultrasound Date Last Menstrual Period Date Ultra Sound Weeks Gestation 05/27/2024 11/19/2023 01/13/2024 08/21/2023 20 Eighteen To Twenty Week Jonathan Update Ultra Sound Date Fundal Height At Umbil Quickening Date Ultra Sound Latest Weeks Gestation Final Jonathan Confirmed By Final Jonathan Confirmed Date Final Jonathan Date Ultra Sound Latest Days Gestation 0 05/14/2024 05/27/20 24 0 Pre-ramy Flowsheet Flowsheet Date 11/19/2023 Santiago Score Blood Edema Fundus Height Fundus Units Glucose Ketones Leukocytes Nitrite Labor Signs Protein Cervic Dilation Cervic Effacement Cervic Station none 12 wks 0cm 0% -4 Type Weight in lbs Pre/Post Dialysis Refused With clothes 158.558485953955 BP Diastolic BP Location Tested BP Systolic BP Type 78 113 sitting Fetus Heart Rate Present A 162 Present Fetus Movement Comments 12 weeks, normal NOB exam fo r 12 weeks. Feeling good.First induced post dates ( delayed by kimberly...)Overnight, got epidural, pushed awhile Daughter was 7'15. ( delivered 5:45 everyone was rushing to [facility]) Flowsheet Date 12/09/2023 Santiago Score Blood Edema Fundus Height Fundus Units Glucose Ketones Leukocytes Nitrite Labor Signs Protein Cervic Dilation Cervic Effacement Cervic Station none 15 wks none neg Type Weight in lbs Pre/Post Dialysis Refused With clothes 159.658749495845 BP Diastolic BP Location Tested BP Systolic BP Type 72 107 sitting Fetus Heart Rate Present A 164 Present Fetus Movement Comments Girl #2 via Materniti testin gSubjectively more pelvic pressure than first , discussed pelvic anatomy / ligamentsplan anatomy US in 3 weeks before next visit Flowsheet Date 01/13/2024 Santiago Score Blood Edema Fundus Height Fundus Units Glucose Ketones Leukocytes Nitrite Labor Signs Protein Cervic Dilation Cervic Effacement Cervic Station none 20 cm none trace Type Weight in lbs Pre/Post Dialysis Refused With clothes 165.133240816967 BP Diastolic BP Location Tested BP Systolic BP Type 72 115 sitting Fetus Heart Rate Present A 147 Present Fetus Movement A Yes Comments 20 weeks doing well, active babyjust did US at [facility].no new issues Flowsheet Date 02/17/2024 Santiago Score Blood Edema Fundus Height Fundus Units Glucose Ketones Leukocytes Nitrite Labor Signs Protein Cervic Dilation Cervic Effacement Cervic Station none 24 cm none none neg Type Weight in lbs Pre/Post Dialysis Refused With clothes 172.774944063121 BP Diastolic BP Location Tested BP Systolic BP Type 71 R arm 107 sitting Fetus Heart Rate Present A 150 Fetus Movement A Yes Comments 25 weeks doing wellwill get a f/u US as ventricles were not clearly seen on anatomy scan3 y.o. daughter carrying around a zruss baby corey Flowsheet Date 03/16/2024 Santiago Score Blood Edema Fundus Height Fundus Units Glucose Ketones Leukocytes Nitrite Labor Signs Protein Cervic Dilation Cervic Effacement Cervic Station 28 cm none neg Type Weight in lbs Pre/Post Dialysis Refused With clothes 177.665802708633 BP Diastolic BP Location Tested BP Systolic BP Type 71 L arm 110 sitting Fetus Heart Rate Present A 156 Fetus Movement A Yes Comments 29 weeks,, 2nd baby, doing w ell.sugar test ongoing today.f/u US showed a umbilical varix near cord insertion site, so we will get a level 2 US for reassurance. Flowsheet Date 03/30/2024 Santiago Score Blood Edema Fundus Height Fundus Units Glucose Ketones Leukocytes Nitrite Labor Signs Protein Cervic Dilation Cervic Effacement Cervic Station 30 cm none trace Type Weight in lbs Pre/Post Dialysis Refused With clothes 181.531701926596 BP Diastolic BP Location Tested BP Systolic BP Type 65 L arm 106 sitting Fetus Heart Rate Present A 152 Fetus Movement Comments HROB level 2 US confirmed um bilical varix. They have reccomended weekly NST/BPPs. We will do those here at [facility]. Unclear if she will require earlier than 39 week induction because of this.f/u growth scan with them in 4 weeks as directed.VAry active baby. No other issues. Flowsheet Date 04/16/2024 Santiago Score Blood Edema Fundus Height Fundus Units Glucose Ketones Leukocytes Nitrite Labor Signs Protein Cervic Dilation Cervic Effacement Cervic Station 32 cm none trace Type Weight in lbs Pre/Post Dialysis Refused With clothes 186.102751047546 BP Diastolic BP Location Tested BP Systolic BP Type 77 L arm 121 sitting Fetus Heart Rate Present A 146 Fetus Movement Comments Weekly NSTs with HROB in Aug for umbilcal VArixHopefully they will let us know about delivery timing.actibyisel babyGBS+ in pastwill discuss reaction she had to TDAP with HROB this afternoon Flowsheet Date 04/30/2024 Santiago Score Blood Edema Fundus Height Fundus Units Glucose Ketones Leukocytes Nitrite Labor Signs Protein Cervic Dilation Cervic Effacement Cervic Station none 33 cm none neg Type Weight in lbs Pre/Post Dialysis Refused With clothes 190.3883697879 BP Diastolic BP Location Tested BP Systolic BP Type 72 R arm 118 sitting Fetus Heart Rate Present A 152 Fetus Movement Comments Has a HROB growth scan and N ST later today for the umbilical varix.Last US report said baby was breech.discussed hoipeful 39 week delivery timing unless HROB says earlier is better. Flowsheet Date 05/07/2024 Santiago Score Blood Edema Fundus Height Fundus Units Glucose Ketones Leukocytes Nitrite Labor Signs Protein Cervic Dilation Cervic Effacement Cervic Station none 34 cm none neg 1cm 70% -3 Type Weight in lbs Pre/Post Dialysis Refused With clothes 190.914290584304 BP Diastolic BP Location Tested BP Systolic BP Type 77 L arm 112 sitting Fetus Heart Rate Present A 146 Fetus Movement A Yes Comments 37 weeks, second babyUnbilic al varix still be followed by HROB39 week induction planned if make sit that farlikely will by 8'8 bythenlabor precautions / kick counts Flowsheet Date 05/14/2024 Santiago Score Blood Edema Fundus Height Fundus Units Glucose Ketones Leukocytes Nitrite Labor Signs Protein Cervic Dilation Cervic Effacement Cervic Station none 35 cm none neg Type Weight in lbs Pre/Post Dialysis Refused With clothes 191.400864459663 BP Diastolic BP Location Tested BP Systolic BP Type 80 R arm 127 sitting Fetus Heart Rate Present A 138 Present Fetus Movement Comments Will be 39 weeks next weeksa w HROB today for varix US and NST ; no changes in planslabor precautions / kick countsEFW on exam 8'4 ( first baby was 7'15) Flowsheet Date 05/31/2024 Santiago Score Blood Edema Fundus Height Fundus Units Glucose Ketones Leukocytes Nitrite Labor Signs Protein Cervic Dilation Cervic Effacement Cervic Station Type Weight in lbs Pre/Post Dialysis Refused With clothes 163.251346499221 BP Diastolic BP Location Tested BP Systolic BP Type 74 R arm 116 sitting Fetus Heart Rate Present Fetus Movement Comments Menstrual History Last Menstrual Date Menses Monthly On Bcp Conception Prior Menses Frequency Hcg Plus Date Menarche Onset Age 0208/21/2023 false Genetic Screening And Infection History Question Response Note Patient's Age Will Be 35 Years Or Older At Estim ated Date of Delivery false Thalassemia (Congolese, Vietnamese, Mediterranean, Or Background): MCV < 80 false Neural Tube Defect (Meningomyelocele, Spina Bifi da, Or Anencephaly) false Congenital Heart Defect false Down Syndrome false Yonathan-Sachs (eg, Cheondoism, Cajun, Bengali-Nicaraguan) f alse Janette Disease false Sickle Cell Disease Or Trait () false Hemophilia Or Other Blood Disorders false Muscular Dystrophy false Cystic Fibrosis false Mitchell's Chorea false Mental Retardation/Autism false If Yes, Was Person Tested For Fragile X? false Other Inherited Genetic Or Chromosomal Disorder false Maternal Metabolic Disorder (eg, Type 1 Diabetes , PKU) false Patient Or Baby's Father Had A Child With Defects Not Listed Above false Recurrent Loss, Or A Stillbirth false Medications (including Suppl ements, Vitamins, Herbs, OTC Drugs), Illicit/Recreational Drugs, Alcohol false If Yes, Agent(s) And Strength/Dosage false Any Other Genetic History false Live With Someone With TB Or Exposed To TB false Patient Or Partner Has History Of Genital Herpes false Rash Or Viral Illness Since Last Menstrual Perio d false History Of STD, Gonorrhea, Chlamydia, HPV, Syphi lis false Other Infection History false History of HIV false History of Hepatitis false Prior GBS-infected child false Delivery Information Delivery Date Delivery Type Labor Anesthesia Weeks Gestation Incision Type Labor Labor Length Hrs Delivered By Post Complications Tubal Sterilization Discharge Date Comments 4 [facility]-Ep idural 38.2 ayo Matias MD (o/c) false Discharge Information Feeding Method Contraceptive Method Maternal HG B and HCT Levels Combination Ob Episode Information Episode Created Date Number of Fetuses Patient Bloodtype Patient rh Status Prepregnancy Weight lbs Domestic Partner Domestic Partner Phone Father Name Tallow Refiner Status 01/31/20 20 1 A Positive CLOSED Fetus Data First Name Last Name Admitted to NICU Weight (g) Sex Living Outcome Pediatric Complications Fetus ID Race Codes Race Delivery Type false 3600.38 65 F [id number] White Vaginal Problems Problem Notes low lying placenta on u/s 03/08/20 Problem Name Start Date End Date Resolution Snomed Code Not e Genital herpes simplex [id number] Jonathan Calculation Initial Jonathan Date Initial Exam Date Initial Exam Provider Initial Ultrasound Date Last Menstrual Period Date Ultra Sound Weeks Gestation 08/13/2020 01/31/2020 [email or web address] 11/07/2019 0 Eighteen To Twenty Week Jonathan Update Ultra Sound Date Fundal Height At Umbil Quickening Date Ultra Sound Latest Weeks Gestation Final Jonathan Confirmed By Final Jonathan Confirmed Date Final Jonathan Date Ultra Sound Latest Days Gestation 03/08/20 20 16 08/13/19 21 3 Pre-ramy Flowsheet Flowsheet Date 02/02/2020 Santiago Score Blood Edema Fundus Height Fundus Units Glucose Ketones Leukocytes Nitrite Labor Signs Protein Cervic Dilation Cervic Effacement Cervic Station none none Type Weight in lbs Pre/Post Dialysis Refused Weight 145.00678100403 BP Diastolic BP Location Tested BP Systolic BP Type 64 106 sitting Fetus Heart Rate Present Fetus Movement Comments doing well with no complaint s. works from home. had surgery for endometriosis 2 years ago at [place], doing well since. last pap wnl at that time. new ob labs done today, ultrasound and new ob folder given. counseled on diet, nutrition, covid prevention. rtc in 3 weeks, will do pap at that time, sooner if needed. Flowsheet Date 02/22/2020 Santiago Score Blood Edema Fundus Height Fundus Units Glucose Ketones Leukocytes Nitrite Labor Signs Protein Cervic Dilation Cervic Effacement Cervic Station none Type Weight in lbs Pre/Post Dialysis Refused Weight 145.672293405229 BP Diastolic BP Location Tested BP Systolic BP Type 74 116 sitting Fetus Heart Rate Present A 155 Present Fetus Movement Comments doing well. pap done today. reviewed lab results. rtc in 4 weeks, sooner if needed. morning sickness is finally gone. counseled on covid prevention, diet and nutrition. Flowsheet Date 03/15/2020 Santiago Score Blood Edema Fundus Height Fundus Units Glucose Ketones Leukocytes Nitrite Labor Signs Protein Cervic Dilation Cervic Effacement Cervic Station Type Weight in lbs Pre/Post Dialysis Refused BP Diastolic BP Location Tested BP Systolic BP Type Fetus Heart Rate Present Fetus Movement Comments Flowsheet Date 03/30/2020 Santiago Score Blood Edema Fundus Height Fundus Units Glucose Ketones Leukocytes Nitrite Labor Signs Protein Cervic Dilation Cervic Effacement Cervic Station none 19 cm none Type Weight in lbs Pre/Post Dialysis Refused Weight 151.799429328845 BP Diastolic BP Location Tested BP Systolic BP Type 68 110 sitting Fetus Heart Rate Present A 144 Present Fetus Movement A Yes Comments doing well. reviewed low lyi ng placenta precautions and ultrasound. new u/s order given. pt was positive for covid but states she had no symptoms other than no smell. rtc in 4 weeks sooner if needed. Flowsheet Date 04/27/2020 Santiago Score Blood Edema Fundus Height Fundus Units Glucose Ketones Leukocytes Nitrite Labor Signs Protein Cervic Dilation Cervic Effacement Cervic Station none 24 cm none Type Weight in lbs Pre/Post Dialysis Refused Weight 156.609698882263 BP Diastolic BP Location Tested BP Systolic BP Type 66 114 sitting Fetus Heart Rate Present A 155 Present Fetus Movement A Yes Comments doing well. reviewed ultraso und results. will return in 4 weeks for 28 week labs and one hour glucose. no complaints. positive movement. rtc in 4 weeks, sooner if needed. counseled on covid prevention, diet and nutrition, kick counts. Flowsheet Date 05/24/2020 Santiago Score Blood Edema Fundus Height Fundus Units Glucose Ketones Leukocytes Nitrite Labor Signs Protein Cervic Dilation Cervic Effacement Cervic Station none 27 cm none Type Weight in lbs Pre/Post Dialysis Refused Weight 160.753650091615 BP Diastolic BP Location Tested BP Systolic BP Type 62 112 sitting Fetus Heart Rate Present A 152 Present Fetus Movement A Yes Comments doing well, no complaints. o ne hour glucose and 28 week labs done today. rtc in 4 weeks with Bashir, sooner if needed. discussed when to go to l and d, kick counts, covid prevention and nutrition. v/u. Flowsheet Date 06/20/2020 Santiago Score Blood Edema Fundus Height Fundus Units Glucose Ketones Leukocytes Nitrite Labor Signs Protein Cervic Dilation Cervic Effacement Cervic Station none 29 cm Type Weight in lbs Pre/Post Dialysis Refused With clothes 170.168066137833 BP Diastolic BP Location Tested BP Systolic BP Type 68 116 sitting Fetus Heart Rate Present A 145 Present Fetus Movement A Yes Comments First doing well.G irl Nuvia RoseDiscussed equivocal HSV2 result. No hx. with (-) blood test.will treat as if (-), declined repeat testing. Flowsheet Date 07/04/2020 Santiago Score Blood Edema Fundus Height Fundus Units Glucose Ketones Leukocytes Nitrite Labor Signs Protein Cervic Dilation Cervic Effacement Cervic Station none 31 cm Type Weight in lbs Pre/Post Dialysis Refused Weight 170.606239365036 BP Diastolic BP Location Tested BP Systolic BP Type 60 114 Fetus Heart Rate Present A 145 Present Fetus Movement A Yes Comments doing well GBS done todaydis cussed pros and cons of TDAP. HAd a slight reaction with injection site swelling in past, but no SOB. Flowsheet Date 07/18/2020 Santiago Score Blood Edema Fundus Height Fundus Units Glucose Ketones Leukocytes Nitrite Labor Signs Protein Cervic Dilation Cervic Effacement Cervic Station Type Weight in lbs Pre/Post Dialysis Refused BP Diastolic BP Location Tested BP Systolic BP Type Fetus Heart Rate Present Fetus Movement Comments Flowsheet Date 07/21/2020 Santiago Score Blood Edema Fundus Height Fundus Units Glucose Ketones Leukocytes Nitrite Labor Signs Protein Cervic Dilation Cervic Effacement Cervic Station none 33 wks none neg Type Weight in lbs Pre/Post Dialysis Refused With clothes 175.784216220155 BP Diastolic BP Location Tested BP Systolic BP Type 66 112 sitting Fetus Heart Rate Present A 141 Present Fetus Movement A Yes Comments doing well, lots of good que stions discussedplan cervix check at next visit Flowsheet Date 07/31/2020 Santiago Score Blood Edema Fundus Height Fundus Units Glucose Ketones Leukocytes Nitrite Labor Signs Protein Cervic Dilation Cervic Effacement Cervic Station none 34 none neg 0cm 50% -4 Type Weight in lbs Pre/Post Dialysis Refused With clothes 174.007634586819 BP Diastolic BP Location Tested BP Systolic BP Type 78 112 sitting Fetus Heart Rate Present A 145 Present Fetus Movement A Yes Comments 38 weeks doing well, baby ve rtex but only a FT openlabor precautions and post dates induction discussed Flowsheet Date 08/07/2020 Santiago Score Blood Edema Fundus Height Fundus Units Glucose Ketones Leukocytes Nitrite Labor Signs Protein Cervic Dilation Cervic Effacement Cervic Station none 35 cm Type Weight in lbs Pre/Post Dialysis Refused With clothes 177.56082650990 BP Diastolic BP Location Tested BP Systolic BP Type 72 112 sitting Fetus Heart Rate Present A 144 Present Fetus Movement A Yes Comments doing well, a few mild ctxno big issuesplan post dates induction next week Flowsheet Date 08/31/2020 Santiago Score Blood Edema Fundus Height Fundus Units Glucose Ketones Leukocytes Nitrite Labor Signs Protein Cervic Dilation Cervic Effacement Cervic Station Type Weight in lbs Pre/Post Dialysis Refused BP Diastolic BP Location Tested BP Systolic BP Type Fetus Heart Rate Present Fetus Movement Comments Menstrual History Last Menstrual Date Menses Monthly On Bcp Conception Prior Menses Frequency Hcg Plus Date Menarche Onset Age 0511/07/2019 true false 5 12 Genetic Screening And Infection History Question Response Note Patient's Age Will Be 35 Yea rs Or Older At Estimated Date of Delivery false Thalassemia (Congolese, Vietnamese, Mediterranean, Or Background): MCV < 80 false Neural Tube Defect (Meningom yelocele, Spina Bifida, Or Anencephaly) false Congenital Heart Defect false Down Syndrome false Yonathan-Sachs (eg, Cheondoism, Cajun , Bengali-Nicaraguan) false Janette Disease false Sickle Cell Disease Or Trait () false Hemophilia Or Other Blood Disorders false Muscular Dystrophy false Cystic Fibrosis false Mitchell's Chorea false Mental Retardation/Autism false If Yes, Was Person Tested Fo r Fragile X? false Other Inherited Genetic Or C hromosomal Disorder false Maternal Metabolic Disorder (eg, Type 1 Diabetes, PKU) false Patient Or Baby's Father Had A Child With Defects Not Listed Above false Recurrent Loss, Or A Stillbirth false Medications (including Suppl ements, Vitamins, Herbs, OTC Drugs), Illicit/Recreational Drugs, Alcohol true If Yes, Agent(s) And Strength/Dosage true Sertraline (100mg once daily), Bupropion (300 mg once daily), prenatals. Any Other Genetic History false Live With Someone With TB Or Exposed To TB false Patient Or Partner Has Histo ry Of Genital Herpes false Rash Or Viral Illness Since Last Menstrual Period false History Of STD, Gonorrhea, C hlamydia, HPV, Syphilis false Other Infection History false History of HIV false History of Hepatitis false Prior GBS-infected child false Plans and Education First Trimester Discussed Date Discussion Item Discussion Note Discuss ed By 02/02/2020 Anticipated course of care deldredsmit 02/02/2020 Alcohol deldredsmit 02/02/2020 Intimate partner violence [facility] 02/02/2020 [facility]/2020 Screening for aneuploidy del dreds 02/02/2020 Nutrition counseling ; special diet; dietary precautions (mercury, listeriosis) [facility] 02/02/2020 Childbirth classes/hospital facilities [facility] 02/02/2020 HIV and other routine tests [facility] 02/02/2020 Risk factors identif ied by history [facility] 02/02/2020 Weight gain counseling [facility] 02/02/2020 Exercise [facility] 02/02/2020 Teratogens [facility] 02/02/2020 Use of any medicatio ns (including supplements, vitamins, herbs, or OTC drugs) [facility] 02/02/2020 [facility] 02/02/2020 Sexual activity [facility] 02/02/2020 Tobacco/smoking cess ation counseling (ask, advise, assess, assist, and arrange) [facility] 02/02/2020 Illicit/recreational drugs d [facility] 02/02/2020 Dental care [facility] 02/02/2020 Travel [facility] 02/02/2020 Seat belt use [facility] 02/02/2020 Indications for ultrasonography [facility] 02/02/2020 Avoidance of saunas or hot tubs [facility] 02/02/2020 Toxoplasmosis precautions (cats/raw meat) [facility] Second Trimester Discussed Date Discussion Item Discussion Note Discuss ed By 02/02/2020 Selecting a care provider [facility] 02/02/[address] anning/tubal sterilization [facility] 02/02/2020 Depression screening (when indicated) [facility] 02/02/2020 Abnormal lab values deldreds [facility] 02/02/2020 Signs and symptoms of labor [facility]2020 Intimate partner violence de ldredsmith 02/02/2020 Tobacco/smoking cess ation counseling (ask, advise, assess, assist, and arrange) [facility] Third Trimester Discussed Date Discussion Item Discussion Note Discuss ed By Delivery Information Delivery Date Delivery Type Labor Anesthesia Weeks Gestation Incision Type Labor Labor Length Hrs Delivered By Post Complications Tubal Sterilization Discharge Date Comments 1 Induce d [facility]-Ep idural 40.4 Therese Bashir MD Discharge Information Feeding Method Contraceptive Method Maternal HG B and HCT Levels Breast
--- OUTSIDE RECORDS SUMMARY | 2025-05-15 09:40 | XMS_ITS | Clinical Summary ---
Author Organization [facility] Address [address] [facility] [place] [address] Care Team Providers Care Burn Nurse Name Role Phone Fei Perez MD Primary Care Provider [phone] Social History Tobacco Use Types Packs/Day Years Used Date Smoking Tobacco: Never Assessed Comments Unknown Sex and Gender Information Value Date Recorded Sex Assigned at Not on file Legal Sex Female 9:45 AM CDT Gender Identity Not on file Sexual Orientation Not on file Plan of Treatment Health Maintenance Due Date Last Done Comments Hepatitis C Virus (HCV) Screening 1990 Hepatitis B Immunization (1 of 3 - 19+ 3-dose series) 2009 Pap Smear 08/31/2011 Human Papillomavirus (HPV) Immunization (1 - 3-dose SCDM series) 2017 Cervical Cancer Screening (CCS) 2020 HPV/Cotest 2020 Influenza Immunization (#1) 2025 SARS-COV-2 Immunization ( season) 2025 Respiratory Syncytial Virus (RSV) Immunization (Adult) (1 - 1-dose 75+ series) 2065 TdaP Immunization Completed 07/04/2020 Meningococcal Immunization (ACWY) Aged Out No longer eligible based on patient's age to complete this topic Pneumococcal Immunization Combined Aged Out No longer eligible based on patient's age to complete this topic Rotavirus Immunization Aged Out No lo nger eligible based on patient's age to complete this topic Insurance Care Teams Burn Nurse Relationship Specialty Start Date End Date Fei Perez MD [address] [place] [id number] PCP - General 01/13/24
--- OUTSIDE RECORDS SUMMARY | 2025-05-15 09:41 | XMS_ITS | Clinical Summary ---
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 This disclosure is being madepursuant to the Care Everywhere program and may not contain all information available regarding this patient. Last updated 18.[employer] [facility] Allergies No known active allergies Medications * Be aware that medications may not be up to date on this document. Alwaysverify current medications with the patient. sertraline (ZOLOFT) 100 MG tablet Take 100 mg by mouth once daily Active buPROPion SR 12hr (ZYBAN) 150 MG tablet Take 150 mg by mouth 2 times daily Active Social History Tobacco Use Types Packs/Day Years Used Date Smoking Tobacco: Never Smokeless Tobacco: Never Alcohol Use Standard Drinks/Week Comments Never 0 (1 standard drink = 0.6 oz pur e alcohol) AUDIT-C Answer Date Recorded Frequency of Alcohol Consumption Never 06/24/2019 Average Number of Drinks Not on file 019 Frequency of Binge Drinking Not on file 05/31 Comments No Sex and Gender Information Value Date Recorded Sex Assigned at Not on file Legal Sex Female 12:48 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 Gender Identity Not on file Sexual Orientation Not on file Last Filed Vital Signs Vital Sign Reading Time Taken Comments Blood Pressure 109/73 05/14/2024 9:37 AM REAL ESTATE APPRAISER Pulse 78 05/14/2024 9:37 AM REAL ESTATE APPRAISER Temperature 36.8 C (98.3 F) 03/23/2021 9:50 AM CDT Respiratory Rate 16 03/23/2021 9:50 AM CDT Oxygen Saturation 98% 03/23/2021 9:50 AM CDT Inhaled Oxygen Concentration - - Weight 61.7 kg (136 lb) 06/24/2019 3:13 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 Height 172.7 cm (5' 8) 06/24/2019 3:13 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 Body Mass Index 20.68 06/24/2019 3:13 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 Plan of Treatment Health Maintenance Due Date Last Done Comments HIV SCREENING 2005 HEPATITIS C SCREENING 08/25/2008 DTAP/TDAP/TD VACCINES (1 - Tdap) 2009 HEPATITIS B VACCINE (1 of 3 - 19+ 3-dose series) 2009 PAP SMEAR 08/31/2011 HPV VACCINE (1 - 3-dose SCDM series) 2017 DEPRESSION SCREENING 06/30/2024 COVID-19 VACCINE (1 - 2023-2 5 season) 2025 INFLUENZA VACCINE (#1) 2025 ZOSTER VACCINE (1 of 2) 2040 HIB VACCINE Aged Out No longer eligi ble based on patient's age to complete this topic MENINGOCOCCAL (Group B) VACC INE SHARED DECISION-MAKING Aged Out No longer eligibl e based on patient's age to complete this topic MENINGOCOCCAL GROUPS A/C/Y/W VACCINE Aged Out No longer eligible b ased on patient's age to complete this topic PNEUMOCOCCAL VACCINE Aged Out No long er eligible based on patient's age to complete [place] [address] [place] [address] [facility] Care Teams Fruit Loader Machine Operator Relationship Specialty Start Date End Date Fei Perez MD PCP - General Internal Medicine 03/23/21
--- OUTSIDE RECORDS SUMMARY | 2025-05-15 09:41 | XMS_ITS | Patient Health Record ---
Author Organization [facility] Address [address] [place] [address] Care Team Providers Care Duty Officer Name Role Phone Chris WARE, Fei Primary Care Provider Caden Yates Unavailable [phone] Allergies No Known Allergies Reason For Referral No Information Medications Medication SIG (Take, Route, Frequency, Duration) Notes Start Date End Date Status Active Auvelity 45-105 MG Tablet Extended Release 1 tablet Orally twice a day; Duration: 30 days 03/04/2025 Active Sertraline HCl 100 MG Tablet 1 tablet once a day for 7 days, 0.5 tablet once a day for 7 days Oral see sign; Duration: 14 days 03/04/2025 Not-Taking Sylwia 0.25-35 MG-MCG Tablet Oral; Duration: 28 Days Acti ve Sertraline HCl 100 MG Tablet 2 tablets Oral Once a day; Duration: 90 days Not-Takin g Immunizations Vaccine Route Administration Date Status Comme nts Tdap Unknown 07/04/2020 Administered Social History Tobacco Use: Social History Observation Description Date Details (start date - stop date) Never Smoker NA - NA Sex Assigned At : Social History Observation Description Sex Assigned At Female Social History Miscellaneous: Social Info Question Answer Notes Advance Care Planning Are you your own decision-maker Yes Do you have Power of Concrete Curer for Health or Medi lesly? No Tobacco Use: Social Info Question Answer Notes Tobacco Control (Standard) Tobacco use: Nonsmoker Additional Details Category Social Info Options Details Migrated Social History Migrated Social History Alcohol Intake: Occasional 05/02/2020,Tobacco Years: Never smoker 05/02/2020,Smoking Status: 0 05/26/2023 Problems Problem Type SNOMED Code ICD Code Onset Dates Problem Status W/U Status Risk Notes Problem Mild recurrent major depression (98808747) Major depressive disorder, recurrent, mild (F33.0) Active confirmed Problem Moderate recurrent major depression (05191753) Major depressive disorder, recurrent, moderate (F33.1) Active confirmed Problem Generalized anxiety disorder (82883773) Generalized anxiety disorder (F41.1) Active confirmed Vital Signs Heart Rate 69 /min 04/25/2025 Height-cm 167.64 cm 04/25/2025 Blood pressure diastolic 70 mm Hg 04/25/2025 Weight-kg 68.04 kg 04/25/2025 Height 66.00 in 04/25/2025 Blood pressure systolic 100 mm Hg 04/25/2025 Weight 150 lbs 04/25/2025 BMI 24.21 kg/m2 04/25/2025 Encounters Encounter Location Date Provider Diagnosis [facility] [employer] [place] [id number] [facility] [address] [place] [address] 09/30/2024 Caden Ayers Encounter for screen ing for depression Z13.31 ; Encounter for screening for cardiovascular disorders Z13.6 ; Generalized anxiety disorder F41.1 and Major depressive disorder, recurrent, mild F33.0 [facility] [address] [place] [address] 11/26/2024 Caden Ayers Encounter for screen ing for depression Z13.31 ; Encounter for screening for cardiovascular disorders Z13.6 ; Generalized anxiety disorder F41.1 and Major depressive disorder, recurrent, mild F33.0 [facility] [address] [place] [address] 03/04/2025 Caden Ayers Generalized anxiety disorder F41.1 and Major depressive disorder, recurrent, mild F33.0 [facility] [address] [place] [address] 04/25/2025 Caden Ayers Generalized anxiety disorder F41.1 and Major depressive disorder, recurrent, mild F33.0 [place] [address] [place] [address] 07/14/2024 [facility] [address] [place] [address] 09/03/2024 Caden Ayers [facility], [facility] [address] [place] [address] 01/23/2025 Caden Ayers [facility] [address] [place] [address] 02/14/2025 Cadenagustin Guzmána [facility] [address] [place] [address] 03/05/2025 Caden Ayers [facility] [address] [facility] [address] [place] [address] 03/10/2025 Cadenagustin Guzmána Major depressive disorder, recurrent, moderate F33.1 [facility] [address] [place] [address] 03/29/2025 Cadenagustin Guzmána [facility] [address] [facility] [address] [place] [address] 03/31/2025 Cadenagustin Guzmána Assessments Encounter Date Diagnosis (ICD Code) Assessment Notes Treatment Notes Treatment Clinical Notes Section Notes 03/10/2025 Major depressive disorder, recurrent, moderate (ICD-10 - F33.1) 11/26/2024 Encounter for screening for depression (ICD-10 - Z13.31) 09/30/2024 Encounter for screening for depression (ICD-10 - Z13.31) 03/04/2025 Generalized anxiety disorder (ICD-10 - F41.1) 04/25/2025 Generalized anxiety disorder (ICD-10 - F41.1) 09/30/2024 Encounter for screening for cardiovascular disorders (ICD-10 - Z13.6) 11/26/2024 Encounter for screening for cardiovascular disorders (ICD-10 - Z13.6) 03/04/2025 Major depressive disorder, recurrent, mild (ICD-10 - F33.0) Electronic Prior Authorization was requested for Auvelity 45-105 MG Tablet Extended Release. Provider can order medication once approval received. start auvelity 45.mg-105mg 1 tablet daily x 7 days then 1 tablet twice daily 04/25/2025 Major depressive disorder, recurrent, mild (ICD-10 - F33.0) 11/26/2024 Generalized anxiety disorder (ICD-10 - F41.1) 09/30/2024 Generalized anxiety disorder (ICD-10 - F41.1) 09/30/2024 Major depressive disorder, recurrent, mild (ICD-10 - F33.0) CancelRx Response got Denied on 2025-03-04 15:10:54 for 'buPROPion HCl ER (XL) 300 MG Tablet Extended Release 24 Hour'Pharmacy Notes: Unable to cancel prescription; prescription was transferred to another pharmacy. NA 11/26/2024 Major depressive disorder, recurrent, mild (ICD-10 - F33.0) 09/30/2024 Other Stacie Bustillo, a mother of two young children including a 5-month-old, presents with symptoms of depression, including feeling overwhelmed, tired, irritable, and in a rut. Depression Assessment: Patient reports feeling overwhelmed, constantly tired, and irritable since returning to work 6 weeks ago. She describes difficulty balancing work, childcare, and household responsibilities. Symptoms include lack of excitement or passion, feeling in a rut, and exhaustion by 8:30 PM daily. Patient is currently and reports being on maximum doses of sertraline and bupropion. Plan: - Continue current medication regimen (sertraline and bupropion) due to status - Schedule follow-up appointment for counseling - Encourage patient to communicate needs clearly with spouse and delegate tasks - Advise patient not to feel guilty about asking for help or wanting personal time Relationship Stress Assessment: Patient reports significant relationship stress with her spouse, citing lack of support in childcare, household responsibilities, and financial contributions. She describes her spouse as frequently absent, prioritizing personal activities over family responsibilities. This situation is contributing to her feelings of being overwhelmed and resentful. Patient has considered marriage counseling but has encountered difficulties finding a provider that accepts their insurance. Plan: - Encourage patient to continue seeking marriage counseling options - Advise patient to have open communication with spouse about division of responsibilities and financial contributions - Suggest patient explicitly state needs and expectations to spouse Work-Life Balance Issues Assessment: Patient reports working 45 hours per week in a job that is supposed to be part-time, contributing to her feelings of being overwhelmed. She describes difficulty managing work responsibilities alongside childcare and household duties, particularly with limited support from her spouse. Plan: - Advise patient to discuss workload concerns with employer - Encourage prioritization of self-care activities, including exercise when possible - Suggest exploring options for additional childcare support or household help if financially feasible the note is transcribed using speech recognition software. It is a reflection of a visit with the patient. It might have some inaccuracy, including medication names and transcribing errors, though efforts have been made to correct them. 11/26/2024 Jorge Bustillo, a mother of two, presents for follow-up of anxiety and depression management, with recent work stress and family changes. Anxiety and Depression Assessment: Patient reports improved management of anxiety and depression since last visit on September 30. Work-related stress has decreased, with support from her boss noted as positive. Anxiety is described as less extreme compared to September. Depression symptoms are stable. Sleep disturbances persist, complicated by having young children. Patient is implementing sleep training techniques for her toddler. No side effects reported from current medications. 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 They have had blunt conversations about the situation, indicating open communication. Patient notes 's increased assistance with childcare during recent family visit. Plan: - Continue to monitor impact of family stressors on mental health - Encourage ongoing open communication with spouse Sleep Disturbances Assessment: Patient reports ongoing sleep issues, complicated by having a toddler and a 7-month-old . Has engaged a sleep recovery coach for the toddler and is implementing new bedtime routines. Effectiveness of these interventions is yet to be determined. Plan: - Implement sleep recovery coach recommendations for toddler - Reassess sleep quality at next follow-up the note is transcribed using speech recognition software. It is a reflection of a visit with the patient. It might have some inaccuracy, including medication names and transcribing errors, though efforts have been made to correct them. 03/04/2025 Jorge Bustillo presents with interrupted sleep, anxiety, and fatigue, reporting approximately 5 hours of fragmented sleep per night. Anxiety and Depression Assessment: Patient reports experiencing significant anxiety, describing it as spiraled down worry. She denies feeling sad or depressed, but acknowledges constant fatigue. The anxiety appears to be impacting her sleep quality and daily functioning. Previous treatments have included sertraline and bupropion, suggesting a history of mood and anxiety management. Plan: - Discontinue bupropion - Decrease sertraline: - Reduce to 100 mg for one week - Further reduce to 50 mg for one week - Then discontinue - Start Auvelity (dextromethorphan- bupropion): - One tablet once daily for one week - Increase to one tablet twice daily after the first week - Take in the morning and afternoon to avoid sleep disruption - Informed consent: Potential side effects include feeling goofy, floaty, or outside themselves, which may be perceived as dizziness. These effects typically occur in waves and usually subside after about a week. - Follow up to assess response to new medication regimen Sleep Disturbance Assessment: Patient reports interrupted sleep, likely exacerbated by childcare responsibilities and anxiety. She estimates getting approximately 5 hours of total sleep per night, though not continuous. This chronic sleep deprivation may be contributing to her fatigue and potentially exacerbating her anxiety symptoms. Plan: - Monitor sleep patterns with new medication regimen - Encourage sleep hygiene practices Fatigue Assessment: Patient reports feeling tired all the time, which she initially associated with possible depression. However, she denies feeling sad or experiencing doom and gloom, suggesting that the fatigue may be more closely related to her anxiety and sleep disturbances. The fatigue is impacting her motivation for activities such as exercise, which she recognizes could be beneficial for managing her anxiety. Plan: - Monitor energy levels with new medication regimen - Encourage gradual increase in physical activity as energy levels improve the note is transcribed using speech recognition software. It is a reflection of a visit with the patient. It might have some inaccuracy, including medication names and transcribing errors, though efforts have been made to correct them. 04/25/2025 Jorge Bustillo is a patient who discontinued bupropion and started Auvelity approximately 2 months ago, presenting for follow-up with reports of improved energy and motivation but experiencing headaches and work-related stress. Depression treatment response Patient has been on Auvelity for approximately 2 months since starting around March 04 after discontinuing bupropion. She reports the medication is working with improved energy and motivation, evidenced by intermittent engagement in exercise and ability to complete necessary tasks. However, she has been taking it once daily at dinner time rather than the recommended twice daily dosing. Patient acknowledges having spurts of working out followed by periods of inactivity but maintains she is doing what needs to be done even without feeling highly energetic. Plan: - Increase Auvelity to twice daily dosing (morning and afternoon or morning and dinner time) to optimize therapeutic benefit Headaches Patient reports experiencing pretty bad headaches that are usually morning headaches upon waking, localized to the frontal area. She required ibuprofen for relief, which is unusual for her. Patient is uncertain whether headaches are related to weather, stress, or fatigue. No issues reported with sleep quality related to the medication. Plan: - Monitor headache pattern with increased Auvelity dosing frequency Work-related stress Patient received a promotion but now regrets it, expressing desire to return to previous position with less money and fewer responsibilities. 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 Work stress may be contributing to her headaches and overall symptom presentation. Plan: - No specific interventions discussed the note is transcribed using speech recognition software. It is a reflection of a visit with the patient. It might have some inaccuracy, including medication names and transcribing errors, though efforts have been made to correct them. Plan Of Treatment Next Appt Details Provider Name:Caden oliveros, 06/07/2025 02:45:00 PM, [facility] [address], [place], [address], Insurance Providers Payer Name Payer Address Payer Phone Subscriber Number Group Number Insured Name Patient Relationship to Insured Coverage Start Date Coverage End Date [facility] [address] [place] [address] [id number] STACIE BUSTILLO Self - patient is the insured Medical (General) History Medical History History ICD Code Problems: Fatigue Generalized anxiety disorder Mild recurrent major depression , Surgical History Surgery Date(Month/Year) Endometr ablate thermal ([id number])
[2025-05-15 09:43] VITALS: BP 128/59; PULSE 58; RESP 18; TEMP 36.4; O2SAT 99
--- NOTE | 2025-05-15 09:51 | ED.URI ---
HPI - URI/Sore Throat General Chief Complaint: Upper Respiratory Infection Stated Complaint: Flu Like Time Seen by Provider: 05/15/25 09:51 Source: patient and family (daughter) Mode of arrival: ambulatory Limitations: no limitations History of Present Illness HPI Narrative: 34-year-old female presents to [facility] with complaints of 8-9 day history of sinus pressure, bilateral ear popping, hoarse voice, dry cough, fatigue, body aches, chills and nasal congestion. Patient has been taking [id number] DayQuil and NyQuil with little relief. Patient's daughter was recently diagnosed with bilateral ear infection. Patient is a nonsmoker. Patient denies recent travel. Last menstrual period was approximately 3-4 weeks ago. Patient denies history of bronchitis or pneumonia. MD elicited complaint: cough, rhinorrhea, nasal congestion and sinus pain Onset (ago): day(s) (8-9) Severity: mild Able to tolerate fluids by mouth: Yes Associated symptoms: voice changes and nasal congestion Treatments prior to arrival: cold medicine Related Data Home Medications ?Medication ?Instructions ?Recorded ?Confirmed ?Last Taken ?Type bupropion HCl 300 mg 24 hr tablet, mg PO 12/08/22 Unknown History extended release sertraline 100 mg tablet mg 12/08/22 Unknown History Compound T3t4 10/06/23 Unknown History Allergies Allergy/AdvReac Type Severity Reaction Status Date / Time No Known Allergies Allergy Verified 05/15/25 09:37 Review of Systems Constitutional: Constitutional: Denies chills, Denies fatigue, Denies fever(s) and Denies weakness ENT: Denies dysphagia, Denies vertigo, Denies dizziness, Denies epistaxis, Reports nasal congestion and Denies sore throat Cardiovascular: Cardiovascular: Denies chest pain Respiratory: Respiratory: Reports cough, Denies dyspnea and Denies wheezing Gastrointestinal: Gastrointestinal: Denies diarrhea, Denies nausea and Denies vomiting Integumentary/Breasts: Skin/Breast: Denies pruritus, Denies erythema and Denies rash Neurologic: Denies dizziness, Denies syncope and Denies headache(s) [facility] Past Medical History Medical History Healthy female adult Surgical History Surgical History No history of previous surgery Comments At time of signature, I agree with nursing past medical, surgical, social and family history. There is no relevant family history pertinent to the presenting complaint. Exam Const: General: healthy appearing and no acute distress Nutritional Appearance: well nourished Orientation/consciousness: patient oriented x3 Limitations: no limitations HENMT: Head: normal to inspection Ears: external ears normal, EAC's normal and TM abnormal wth effusion serous on the left Face and sinus: sinus tenderness frontal Mouth: Yes moist mucous membranes Throat: posterior oropharynx normal and uvula midline Other: Moderate nasal congestion noted with purulent drainage noted to left Eyes: Conjunctivae: conjunctivae normal Neck: Neck: normal visual inspection Resp: Effort & Inspection: normal respiratory effort and not labored Auscultation: clear to auscultation bilaterally, no crackles, no rales, no rhonchi and no wheezes Cardio: Rate: regular rate Rhythm: regular rhythm Heart sounds: no murmurs Skin: General skin exam: normal color Rashes: no rashes Neuro: General: patient oriented x3 and moves all extremities Speech: normal speech Extrem: General: normal to inspection Psych: Affect: normal affect Attitude: cooperative Course Course Level of Care: Express Care Visit Vital Signs Vital signs: Vital Signs Temperature 36.4 C L 05/15/25 09:43 Pulse Rate 58 L 05/15/25 09:43 Respiratory Rate 18 05/15/25 09:43 Blood Pressure 128/59 L 05/15/25 09:43 Pulse Oximetry 99 05/15/25 09:43 Oxygen Delivery Room Air 05/15/25 09:43 Temperature 36.4 C L 05/15/25 09:43 Pulse Rate 58 L 05/15/25 09:43 Respiratory Rate 18 05/15/25 09:43 Blood Pressure 128/59 L 05/15/25 09:43 Pulse Oximetry 99 05/15/25 09:43 Oxygen Delivery Room Air 05/15/25 09:43 MDM - URI/Sore Throat MDM Narrative Medical decision making narrative: Instructed patient to take Claritin and Flonase daily. Instructed patient to take antibiotic as prescribed. Instructed patient to follow-up with primary care provider if symptoms not improved Differential Diagnosis Differential diagnosis: Likely upper respiratory infection, otitis media and viral infection Critical Care Time Critical Care Time Critical Care Time: No Discharge Plan Discharge Clinical Impression: Sinusitis Qualifiers: Sinusitis location: frontal Chronicity: acute Recurrence: non-recurrent Qualified Code(s): J01.10 - Acute frontal sinusitis, unspecified Patient Disposition: Home Condition: Stable Instructions: Antibiotic Form, Sinusitis (ED) Additional Instructions: Take Claritin and Flonase daily Take antibiotic as prescribed Increase fluid intake Rest [id number] Motrin or Tylenol as needed for body aches, chills or fevers Follow-up with primary care provider if symptoms not improved Proceed to the emergency room if symptoms worsen Patient Language: Setswana Prescriptions: New amoxicillin-pot clavulanate 875-125 mg tablet 1 tablet PO Q12H 10 Days Qty: 20 0RF fluticasone propionate [Flonase Allergy Relief] 50 mcg/actuation spray,suspension 1 spray intranasal BID Qty: 16 0RF Rx Instructions: administer into each nostril loratadine [Claritin] 10 mg tablet 10 mg PO DAILY Qty: 30 0RF No Action Compound T3t4 sertraline 100 mg tablet bupropion HCl 300 mg tablet extended release 24 hr PO Follow-up/Referrals: PHYSICIAN,SALES MANAGER [Primary Care Provider, Internal Medicine] Time of Disposition: 09:55
== END 2025-05-15 09:57 | disposition home or self-care (01) ==
PROVIDERS: Emergency Provider Nurse Practitioner Family
DX: J01.10 Acute frontal sinusitis, unspecified (principal)
CPT/HCPCS: 99213; G0463